=== PATIENT | female | born 1965 | race Caucasian/White ===

== ENCOUNTER 2024-06-05 08:12 | Day surgery (SDC) | payer BC, OTHER ==
[~2024-06-05 08:12] MED LIST: Sodium Chloride 0.9% 10 ML Syringe FLUSH PRN; Sodium Chloride 0.9% 10 ML Syringe FLUSH SCH
[2024-06-05] MEDS ORDERED: Propofol 200 MG/20 ML SDV ONE ×4 (08:33)
[2024-06-05] MEDS ORDERED: Midazolam 1 MG/ML 2 ML SDV ONE (08:33)
[2024-06-05] MEDS ORDERED: ePHEDrine 50 MG/ML SDV ONE (08:34)
[2024-06-05] MEDS: Lactated Ringers 1,000 ML IV SCH (09:35)
[2024-06-05] MEDS ORDERED: Lidocaine 1% PF 2 ML SDV ONE ×2 (09:49)
[2024-06-05] MEDS ORDERED: Lidocaine 1% 4 ML ONE (09:49)
== END 2024-06-05 11:18 | disposition home or self-care (01) ==
LOC: JD.SDS 08:12
PROVIDERS: ATTEND Surgery
DX: Z12.11 Encounter for screening for malignant neoplasm of colon (principal); K63.5 Polyp of colon; K57.30 Diverticulosis of large intestine without perforation or abscess without bleeding; K64.4 Residual hemorrhoidal skin tags; E03.9 Hypothyroidism, unspecified; E78.5 Hyperlipidemia, unspecified
CPT/HCPCS: 45380; J2250; J2704; J7120; 00811; J3490